=== PATIENT | male | born 1980 | race Caucasian/White ===

== ENCOUNTER 2016-05-18 17:49 | Emergency (ER) | payer MEDICARE, MEDICAID ==
[~2016-05-18] VITALS: Ht 190.5 cm; Wt 87.5 kg
[~2016-05-18 17:49] MED LIST: ACHD5005 PO; ALPR2TAB2; AMOX500C2 PO; ARPZ20T PO; CIPR500T78 PO; CYCL10TA9 PO; DICY10CA59 PO; HYDR1TAB PO; IBP200T PO; NAPR-243 PO; NITR-65 PO; OMEP20TA7 PO; ONDA4TAB8 PO; ONDA8TAB9 PO; PHEN100T26 PO; PHEN200T27 PO; PRX20T; TRAM50TA2 PO; TRAZ-28 PO
[2016-05-18] MEDS ORDERED: ASPIRIN 81 MG CHEW (CHILDREN'S ASA) PO ONE (18:15)
--- NOTE | 2016-05-18 18:15 | ED Chest Pain ---
General Chief Complaint: Chest Pain Stated Complaint: CP, SOA, COUGH Source: patient, EMS, RN notes reviewed Exam Limitations: no limitations History of Present Illness Time seen by provider: 18:10 Initial Comments As above. Off and on since last PM. Right sided. Worse c/ inspiration. Severity/Quality: moderate (5/10), sharp, stabbing Radiation: no radiation Activities at Onset: none Prior CP/Workup: no prior cardiac workup Modifying Factors: worse with breathing ASA po [facility] TECHNICAL ARCHITECT: Yes NTG SL [facility] TECHNICAL ARCHITECT: Yes Associated Symptoms: denies symptoms Allergies and Home Medications Allergies Coded Allergies: acetaminophen (Unverified Allergy, Unknown, 10/25/15) povidone-iodine (Unverified Allergy, Unknown, 10/25/15) propoxyphene (Unverified Allergy, Unknown, 10/25/15) soap (Unverified Allergy, Unknown, 10/25/15) Home Medications Aripiprazole 20 Mg Tablet 20 MG PO DAILY (Reported) Dicyclomine HCl 10 Mg Capsule #15 10 MG PO Q6H PRN PRN ABDOMINAL PAIN Prescribed by: GREGG COHEN on 10/25/15 2345 Omeprazole 20 Mg Tablet.dr 20 MG PO DAILY (Reported) Ondansetron 4 Mg Tab.rapdis #10 4 MG PO Q4H Prescribed by: GREGG COHEN on 10/25/15 2345 Trazodone HCl 50 Mg Tablet 50 MG PO PRN (Reported) Review of Systems Constitutional: see HPI Cardiovascular: See HPI Chest Pain (right side) All Other Systems Reviewed Negative Unless Noted: Yes (Negative excepted noted.) Past Dbqebup-Bqdjwh-Eqgmlw Hx Immunizations Up To Date Tetanus Booster (TDap): Less than 5yrs Date of Influenza Vaccine: Feb 15, 2013 Surgeries HX Surgeries: No Respiratory Hx Respiratory Disorders: No Cardiovascular Hx Cardiac Disorders: No Neurological Hx Neurological Disorders: No Genitourinary Hx Genitourinary Disorders: Yes Genitourinary Disorders: Kidney Stones Gastrointestinal Hx Gastrointestinal Disorders: Yes (LUQ ABDOMINAL PAIN ) Gastrointestinal Disorders: Gastroesophageal Reflux Musculoskeletal Hx Musculoskeletal Disorders: No Endocrine Hx Endocrine Disorders: No HEENT HX ENT Disorders: No Cancer Hx Cancer: No Psychosocial Hx Psychiatric Problems: Yes Behavioral Health Disorders: Sleep Difficulties, Schizophrenia Integumentary HX Skin/Integumentary Disorder: No Blood Transfusions Hx Blood Disorders: No Physical Exam Vital Signs Vital Sign - Last 12Hours 05/18/16 05/18/16 17:50 20:24 Temp 98.0 Pulse 85 Resp 18 B/P 137/84 Pulse Ox 99 O2 Delivery Room Air Capillary Refill : General Appearance: No Apparent Distress WD/WN HEENT: Other (oral pharynx on the dry side.) Respiratory: Lungs Clear No Respiratory Distress Cardiovascular: Regular Rate, Rhythm Gastrointestinal: Non Tender Rectal: Deferred Neurologic/Psychiatric: Alert Oriented x3 No Motor/Sensory Deficits Depressed Affect Skin: Warm/Dry Progress/Results/Core Measures Results/Orders Lab Results Laboratory Tests Test 05/18/16 18:00 05/18/16 19:10 Range/Units Alanine Aminotransferase (ALT/SGPT) 50 0-55 U/L Albumin 4.7 H 3.2-4.5 G/DL Alkaline Phosphatase 88 40-136 U/L Anion Gap 18 H 5-14 MMOL/L Aspartate Amino Transf (AST/SGOT) 55 H 5-34 U/L B-Type Natriuretic Peptide < 10.0 <100.0 PG/ML BUN/Creatinine Ratio 17 Basophils # (Auto) 0.1 0.0-0.1 10^3/uL Basophils (%) (Auto) 1 0-10 % Blood Urea Nitrogen 20 H 7-18 MG/DL Calcium Level 9.4 8.5-10.1 MG/DL Carbon Dioxide Level 18 L 21-32 MMOL/L Chloride Level 101 98-107 MMOL/L Creatinine 1.16 0.60-1.30 MG/DL D-Dimer 0.39 0.00-0.49 UG/ML Eosinophils # (Auto) 0.1 0.0-0.3 10^3/uL Eosinophils (%) (Auto) 1 0-10 % Estimat Glomerular Filtration Rate > 60 Glucose Level 103 70-105 MG/DL Hematocrit 39 L 40-54 % Hemoglobin 13.8 13.3-17.7 G/DL Lipase 31 8-78 U/L Lymphocytes # (Auto) 2.6 1.0-4.0 X 10^3 Lymphocytes (%) (Auto) 25 12-44 % Magnesium Level 2.1 1.8-2.4 MG/DL Mean Corpuscular Hemoglobin 32 25-34 PG Mean Corpuscular Hemoglobin Concent 35 32-36 G/DL Mean Corpuscular Volume 91 80-99 FL Mean Platelet Volume 9.5 7.4-10.4 FL Monocytes # (Auto) 0.8 0.0-1.0 X 10^3 Monocytes (%) (Auto) 8 0-12 % Neutrophils # (Auto) 6.8 1.8-7.8 X 10^3 Neutrophils (%) (Auto) 65 42-75 % Platelet Count 253 130-400 10^3/uL Potassium Level 3.3 L 3.6-5.0 MMOL/L Red Blood Count 4.33 L 4.35-5.85 10^6/uL Red Cell Distribution Width 12.8 10.0-14.5 % Serum Alcohol 14 H <10 MG/DL Sodium Level 137 135-145 MMOL/L Total Bilirubin 1.5 H 0.1-1.0 MG/DL Total Protein 7.5 6.4-8.2 G/DL Troponin I < 0.30 <0.30 NG/ML White Blood Count 10.3 4.3-11.0 10^3/uL Ur Tricyclic Antidepressants Screen NEGATIVE NEGATIVE Urine Amphetamines Screen NEGATIVE NEGATIVE Urine Barbiturates Screen NEGATIVE NEGATIVE Urine Benzodiazepines Screen NEGATIVE NEGATIVE Urine Cannabinoids Screen NEGATIVE NEGATIVE Urine Cocaine Screen NEGATIVE NEGATIVE Urine Methadone Screen NEGATIVE NEGATIVE Urine Methamphetamines Screen NEGATIVE NEGATIVE Urine Opiates Screen NEGATIVE NEGATIVE Urine Oxycodone Screen NEGATIVE NEGATIVE Urine Phencyclidine Screen NEGATIVE NEGATIVE Urine Propoxyphene Screen NEGATIVE NEGATIVE My Orders Orders-JEANNE JEAN BAPTISTE DO Saline Lock/Iv-Start (05/18/16 18:11) Ekg Tracing (05/18/16 18:11) BNP (05/18/16 18:11) Cbc With Automated Diff (05/18/16 18:11) Comprehensive Metabolic Panel (05/18/16 18:11) Fibrin Degradation Products (05/18/16 18:11) Drug Screen Stat (Urine) (05/18/16 18:11) Lipase (05/18/16 18:11) Magnesium (05/18/16 18:11) Troponin I (05/18/16 18:11) Aspirin Chewable Tablet (Baby Aspirin Ch (05/18/16 18:15) Alcohol (05/18/16 18:35) Saline Lock/Iv-Start (05/18/16 18:56) Ns Iv 1000 Ml (Sodium Chloride 0.9%) (05/18/16 18:56) Potassium Chloride Powder (Klor Con 20 M (05/18/16 19:00) Ketorolac Injection (Toradol Injection) (05/18/16 19:00) Potassium Chloride (Tablet) (K Dur Table (05/18/16 19:31) Potassium Chloride (Tablet) (K Dur Table (05/18/16 19:45) Ns Iv 1000 Ml (Sodium Chloride 0.9%) (05/18/16 19:29) Medications Given in ED Vital Signs/I&O Vital Sign - Last 12Hours 05/18/16 05/18/16 17:50 20:24 Temp 98.0 Pulse 85 80 Resp 18 18 B/P 137/84 Pulse Ox 99 O2 Delivery Room Air ECG Initial ECG Impression Date: May 18, 2016 Initial ECG Impression Time: 18:07 Initial ECG Rate: 98 Initial ECG Rhythm: Normal Sinus Initial ECG Intervals: QT Initial ECG Impression: Nonspecific Changes Initial ECG Comparisson: No Previous ECG Available Departure Impression Impression: Primary Impression: Non-cardiac chest pain Additional Impressions: Hypokalemia Dehydration Disposition: 01 HOME, SELF-CARE Condition: Improved Departure-Patient Inst. Decision time for Depature: 20:04 Referrals: SKINNY PEGUERO MD (PCP/Family) Primary Care Physician Patient Instructions: Chest Pain That Is Not Caused by the Heart (DC), Dehydration, Adult (DC) Add. Discharge Instructions: All discharge instructions reviewed with patient and/or family. Voiced understanding. NEED TO DRINK MORE WATER! JEANNE JEAN BAPTISTE DO May 18, 2016 18:15
[2016-05-18 18:20] LABS: BASOPHILS # (AUTO) 0.1 10^3/uL (0.0-0.1); BASOPHILS % (AUTO) 1 % (0-10); EOSINOPHILS # (AUTO) 0.1 10^3/uL (0.0-0.3); EOSINOPHILS % (AUTO) 1 % (0-10); LYMPHOCYTES # (AUTO) 2.6 X 10^3 (1.0-4.0); LYMPHOCYTES % (AUTO) 25 % (12-44); MEAN CORPUSCULAR HEMOGLOBIN 32 PG (25-34); MEAN CORPUSCULAR HGB CONC 35 G/DL (32-36); MEAN CORPUSCULAR VOLUME 91 FL (80-99); MEAN PLATELET VOLUME 9.5 FL (7.4-10.4); MONOCYTES # (AUTO) 0.8 X 10^3 (0.0-1.0); MONOCYTES % (AUTO) 8 % (0-12); NEUTROPHILS # (AUTO) 6.8 X 10^3 (1.8-7.8); NEUTROPHILS % (AUTO) 65 % (42-75); PLATELET COUNT 253 10^3/uL (130-400); RED BLOOD COUNT 4.33 10^6/uL (4.35-5.85); RED CELL DISTRIBUTION WIDTH 12.8 % (10.0-14.5); WHITE BLOOD COUNT 10.3 10^3/uL (4.3-11.0)
[2016-05-18 18:46] LABS: ALANINE AMINOTRANSFERASE 50 U/L (0-55); ALBUMIN 4.7 G/DL (3.2-4.5); ANION GAP 18 MMOL/L (5-14); ASPARTATE AMINO TRANSFERASE 55 U/L (5-34); BILIRUBIN,TOTAL 1.5 MG/DL (0.1-1.0); BLOOD UREA NITROGEN 20 MG/DL (7-18); BUN/CREATININE RATIO 17; CALCIUM 9.4 MG/DL (8.5-10.1); CARBON DIOXIDE 18 MMOL/L (21-32); CHLORIDE 101 MMOL/L (98-107); CREATININE SERUM 1.16 MG/DL (0.60-1.30); GFR ESTIMATED > 60; GLUCOSE 103 MG/DL (70-105); LIPASE 31 U/L (8-78); MAGNESIUM 2.1 MG/DL (1.8-2.4); POTASSIUM 3.3 MMOL/L (3.6-5.0); SODIUM 137 MMOL/L (135-145); TOTAL PROTEIN 7.5 G/DL (6.4-8.2)
[2016-05-18 18:49] LABS: TROPONIN I < 0.30 NG/ML (<0.30)
[2016-05-18] MEDS ORDERED: NS IV 1000 ML 1,000 ML IV ONE (18:56)
[2016-05-18] MEDS ORDERED: KCL 20 MEQ POWDER FOR ORAL SOLUTION PO ONE (19:00)
[2016-05-18] MEDS ORDERED: KETOROLAC 30 MG/ML VIAL IVP ONE (19:00)
[2016-05-18] MEDS ORDERED: NS IV 1000 ML 1,000 ML ONE (19:29)
[2016-05-18] MEDS ORDERED: KCL 20 MEQ TAB (K-DUR) PO ONE ×2 (19:31→19:45)
[2016-05-18 20:24] VITALS: BP 114/74
== END 2016-05-18 20:25 | disposition home or self-care (01) ==
LOC: EDUNIT# 17:49 → ER 17:50
DX: R07.89 Other chest pain (principal); E87.6 Hypokalemia; E86.0 Dehydration; Z79.899 Other long term (current) drug therapy
CPT/HCPCS: 36415; 80053; 80306; 80320; 83690; 83735; 83880; 84484; 85025; 85379; 93005; 96361; 96374

== ENCOUNTER 2017-07-28 17:27 | Emergency (ER) | payer MEDICARE, MEDICAID ==
[~2017-07-28] VITALS: Ht 188 cm; Wt 86.6 kg
--- OUTSIDE RECORDS SUMMARY | 2017-07-28 17:33 | XMS REPORT | Continuity of Care Document ---
Author Author [facility] Organization [facility] Address Unknown Phone Unavailable Allergies Active Description Code Type Severity Reaction Onset Reported/Identified Relationship to Patient Clinical Status Yes acetaminophen [id number] Drug Allergy Unknown N/A 10/25/2015 Yes povidone-iodine [id number] Drug Allergy Unknown N/A 10/25/2015 Yes propoxyphene [id number] Drug Allergy Unknown N/A 10/25/2015 Yes soap [id number] Drug Allergy Unknown N/A 10/25/2015 Medications There is no data. Problems Date Dx Coded Attending Type Code Diagnosis Diagnosed By 08/08/2010 Ot 525.9 DENTAL DISORDER NOS 10/19/2010 Ot 719.46 JOINT PAIN-L /LEG 10/19/2010 Ot 924.11 CONTUSION OF KNEE 10/19/2010 Ot E000.8 OTHER EXTERNAL CAUSE STATUS 10/19/2010 Ot E888.9 FALL NOS 04/12/2011 Ot 521.00 UNSPEC DENTAL CARIES 04/12/2011 Ot 525.9 DENTAL DISORDER NOS 10/12/2011 Ot 521.00 UNSPEC DENTAL CARIES 10/12/2011 Ot 525.9 DENTAL DISORDER NOS 12/31/2011 Ot 724.2 LUMBAGO 12/31/2011 Ot 846.0 SPRAIN LUMBOSACRAL 12/31/2011 Ot E000.8 OTHER EXTERNAL CAUSE STATUS 12/31/2011 Ot E849.0 ACCIDENT IN HOME 12/31/2011 Ot E881.0 FALL FROM LADDER 05/29/2013 CHRISTOPHER CRUMP Ot 592.0 CALCULUS OF KIDNEY 05/29/2013 CHRISTOPHER CRUMP Ot 787.01 NAUSEA WITH VOMITING 05/29/2013 CHRISTOPHER CRUMP Ot 789.09 ABDOMINAL PAIN, OTHER SPECIFIED SITE 07/05/2013 GREGG COHEN DO Ot 599.72 MICROSCOPIC HEMATURIA 07/05/2013 GREGG COHEN DO Ot 788.1 DYSURIA 07/05/2013 NOEL DO, GREGG K Ot 789.09 ABDOMINAL PAIN, OTHER SPECIFIED SITE 10/26/2015 NOEL DO, GREGG K Ot F17.210 NICOTINE DEPENDENCE, CIGARETTES, UNCOMPL 10/26/2015 NOEL DO, GREGG K Ot K40.90 UNIL INGUINAL HERNIA, W/O OBST OR GANGR, 10/26/2015 NOEL DO, GREGG K Ot R10.12 LEFT UPPER QUADRANT PAIN 10/29/2015 NOEL DO, GREGG K Ot F17.210 NICOTINE DEPENDENCE, CIGARETTES, UNCOMPL 10/29/2015 NOEL DO, GREGG K Ot K40.90 UNIL INGUINAL HERNIA, W/O OBST OR GANGR, 10/29/2015 NOEL DO, GREGG K Ot R10.12 LEFT UPPER QUADRANT PAIN 10/29/2015 NOEL DO, GREGG K Ot F17.210 NICOTINE DEPENDENCE, CIGARETTES, UNCOMPL 10/29/2015 NOEL DO, GREGG K Ot K40.90 UNIL INGUINAL HERNIA, W/O OBST OR GANGR, 10/29/2015 NOEL DO, GREGG K Ot R10.12 LEFT UPPER QUADRANT PAIN 05/18/2016 JEANNE JEAN BAPTISTE DO Ot E86.0 DEHYDRATION 05/18/2016 JEANNE JEAN BAPTISTE DO Ot E87.6 HYPOKALEMIA 05/18/2016 JEANNE JEAN BAPTISTE DO Ot R07.89 OTHER CHEST PAIN 05/18/2016 JEANNE JEAN BAPTISTE DO Ot R07.9 CHEST PAIN, UNSPECIFIED 05/18/2016 JEANNE JEAN BAPTISTE DO Ot 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 05/20/2016 JEANNE JEAN BAPTISTE DO Ot E86.0 DEHYDRATION 05/20/2016 JEANNE JEAN BAPTISTE DO Ot E87.6 HYPOKALEMIA 05/20/2016 JEANNE JEAN BAPTISTE DO Ot R07.89 OTHER CHEST PAIN 05/20/2016 JEANNE JEAN BAPTISTE DO Ot R07.9 CHEST PAIN, UNSPECIFIED 05/20/2016 JEANNE JEAN BAPTISTE DO Ot Z79.899 OTHER SNF (CURRENT) DRUG THERAPY 05/20/2016 JEANNE JEAN BAPTISTE DO Ot E86.0 DEHYDRATION 05/20/2016 JEANNE JEAN BAPTISTE DO Ot E87.6 HYPOKALEMIA 05/20/2016 JEANNE JEAN BAPTISTE DO Ot R07.89 OTHER CHEST PAIN 05/20/2016 JEANNE JEAN BAPTISTE DO Ot R07.9 CHEST PAIN, UNSPECIFIED 05/20/2016 JEANNE JEAN BAPTISTE DO, Ot 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 Results Test Result Range Complete blood count (CBC) with automated white blood cell (WBC) differential - 05/18/16 18:00 Blood leukocytes automated count (number/volume) 10.3 10*3/uL 4.3-11.0 Blood erythrocytes automated count (number/volume) 4.33 10*6/uL 4.35-5.85 Venous blood hemoglobin measurement (mass/volume) 13.8 g/dL 13.3-17.7 Blood hematocrit (volume fraction) 39 % 40-54 Automated erythrocyte mean corpuscular volume 91 [foz_us] 80-99 Automated erythrocyte mean corpuscular hemoglobin (mass per erythrocyte) 32 pg 25-34 Automated erythrocyte mean corpuscular hemoglobin concentration measurement ( mass/volume) 35 g/dL 32-36 Automated erythrocyte distribution width ratio 12.8 % 10.0-14.5 Automated blood platelet count (count/volume) 253 10*3/uL 130-400 Automated blood platelet mean volume measurement 9.5 [foz_us] 7.4-10.4 Automated blood neutrophils/100 leukocytes 65 % 42-75 Automated blood lymphocytes/100 leukocytes 25 % 12-44 Blood monocytes/100 leukocytes 8 % 0-12 Automated blood eosinophils/100 leukocytes 1 % 0-10 Automated blood basophils/100 leukocytes 1 % 0-10 Blood neutrophils automated count (number/volume) 6.8 10*3 1.8-7.8 Blood lymphocytes automated count (number/volume) 2.6 10*3 1.0-4.0 Blood monocytes automated count (number/volume) 0.8 10*3 0.0-1.0 Automated eosinophil count 0.1 10*3/uL 0.0-0.3 Automated blood basophil count (count/volume) 0.1 10*3/uL 0.0-0.1 Fibrin D-dimer FEU measurement in platelet poor plasma (mass/volume) - 18:00 Fibrin D-dimer FEU measurement in platelet poor plasma (mass/volume) 0.39 ug/mL 0.00-0.49 Comprehensive metabolic panel - 05/18/16 18:00 Serum or plasma sodium measurement (moles/volume) 137 mmol/L 135-145 Serum or plasma potassium measurement (moles/volume) 3.3 mmol/L 3.6-5.0 Serum or plasma chloride measurement (moles/volume) 101 mmol/L 98-107 Carbon dioxide 18 mmol/L 21-32 Serum or plasma anion gap determination (moles/volume) 18 mmol/L 5-14 Serum or plasma urea nitrogen measurement (mass/volume) 20 mg/dL 7-18 Serum or plasma creatinine measurement (mass/volume) 1.16 mg/dL 0.60-1.30 Serum or plasma urea nitrogen/creatinine mass ratio 17 NRG Serum or plasma creatinine measurement with calculation of estimated glomerular filtration rate > NRG Serum or plasma glucose measurement (mass/volume) 103 mg/dL 70-105 Serum or plasma calcium measurement (mass/volume) 9.4 mg/dL 8.5-10.1 Serum or plasma total bilirubin measurement (mass/volume) 1.5 mg/dL 0.1-1.0 Serum or plasma alkaline phosphatase measurement (enzymatic activity/volume) 88 U/L 40-136 Serum or plasma aspartate aminotransferase measurement (enzymatic activity/ volume) 55 U/L 5-34 Serum or plasma alanine aminotransferase measurement (enzymatic activity/volume ) 50 U/L 0-55 Serum or plasma protein measurement (mass/volume) 7.5 g/dL 6.4-8.2 Serum or plasma albumin measurement (mass/volume) 4.7 g/dL 3.2-4.5 Magnesium - 05/18/16 18:00 Magnesium 2.1 mg/dL 1.8-2.4 Serum or plasma troponin i.cardiac measurement (mass/volume) - 05/18/16 18:00 Serum or plasma troponin i.cardiac measurement (mass/volume) < ng/ mL <0.30 Lipase - 05/18/16 18:00 Lipase 31 U/L 8-78 Serum or plasma lithium measurement (moles/volume) - 05/18/16 18:00 BNP level < pg/mL <100.0 Serum or plasma ethanol measurement (mass/volume) - 05/18/16 18:00 Serum or plasma ethanol measurement (mass/volume) 14 mg/dL <10 Urine drug screening test - 05/18/16 19:10 Urine phencyclidine detection by screening method NEGATIVE NEGATIVE Urine benzodiazepines detection by screening method NEGATIVE NEGATIVE Urine cocaine detection NEGATIVE NEGATIVE Urine amphetamines detection by screening method NEGATIVE NEGATIVE Urine methamphetamine detection by screening method NEGATIVE NEGATIVE Urine cannabinoids detection by screening method NEGATIVE NEGATIVE Urine opiates detection by screening method NEGATIVE NEGATIVE Urine barbiturates detection NEGATIVE NEGATIVE Screening urine tricyclic antidepressants detection NEGATIVE NEGATIVE Urine methadone detection by screening method NEGATIVE NEGATIVE Urine oxycodone detection NEGATIVE NEGATIVE Urine propoxyphene detection NEGATIVE NEGATIVE Encounters ACCT No. Visit Date/Time Discharge Status Pt. Type Provider Facility Loc./Unit Complaint [id number] 05/18/2016 17:50:00 05/18/2016 20:25:00 DIS Emergency JEANNE JEAN BAPTISTE DO [facility] ER CP, SOA, COUGH [id number] 10/25/2015 22:09:00 10/26/2015 00:04:00 DIS Emergency GREGG COHEN DO [facility] ER LUQ PAIN [id number] 07/05/2013 15:02:00 07/05/2013 17:42:00 DIS Emergency GREGG COHEN DO [facility] ER KIDNEY STONES [id number] 05/29/2013 16:42:00 05/29/2013 20:43:00 DIS Emergency CHRISTOPHER CRUMP [facility] ER KIDNEY STONES [id number] 12/31/2011 19:02:00 Document Registration [id number] 10/12/2011 10:55:00 Document Registration [id number] 04/12/2011 12:52:00 Document Registration [id number] 10/19/2010 09:51:00 Document Registration [id number] 08/08/2010 12:33:00 Document Registration
--- NOTE | 2017-07-28 17:39 | ED Upper Extremity ---
General Stated Complaint: RIGHT SHOULDER PAIN Source: patient Exam Limitations: no limitations History of Present Illness Date Seen by Provider: Jul 28, 2017 Time Seen by Provider: 17:35 Initial Comments To ER with right shoulder pain that began one week ago without known cause. Pain is worsened by shoulder abduction. Onset: last week Severity: moderate Pain/Injury Location: right shoulder Method of Injury: unknown Modifying Factors: Worse With Movement Allergies and Home Medications Allergies Coded Allergies: acetaminophen (Unverified Allergy, Unknown, 10/25/15) povidone-iodine (Unverified Allergy, Unknown, 10/25/15) propoxyphene (Unverified Allergy, Unknown, 10/25/15) soap (Unverified Allergy, Unknown, 10/25/15) Home Medications Cyclobenzaprine HCl 5 Mg Tablet, 5 MG PO TID PRN for PAIN-MODERATE Prescribed by: WENDY DOMINGUEZ on 07/28/17 1800 Methylprednisolone 4 Mg Tab.ds.pk, 4 MG PO UD Prescribed by: WENDY DOMINGUEZ on 07/28/17 1800 Omeprazole 20 Mg Tablet.dr, 20 MG PO DAILY, (Reported) Patient Home Medication List Home Medication List Reviewed: Yes Constitutional: see HPI EENTM: see HPI Respiratory: no symptoms reported Cardiovascular: no symptoms reported Genitourinary: no symptoms reported Musculoskeletal: see HPI Skin: no symptoms reported Psychiatric/Neurological: No Symptoms Reported Past Ttsqqbn-Ctdyie-Kwbzxb Hx Patient Social History Recent Foreign Travel: No Contact w/Someone Who Travel: No Recent Hopitalizations: No Immunizations Up To Date Tetanus Booster (TDap): Less than 5yrs Date of Influenza Vaccine: Feb 15, 2013 Genitourinary Genitourinary Disorders: Kidney Stones Gastrointestinal Gastrointestinal Disorders: Gastroesophageal Reflux Psychosocial Behavioral Health Disorders: Sleep Difficulties, Schizophrenia Physical Exam Vital Signs Vital Signs - First Documented 07/28/17 17:32 Temp 94.1 Pulse 70 Resp 18 B/P (MAP) 146/92 (110) Pulse Ox 98 O2 Delivery Room Air Capillary Refill : General Appearance: WD/WN, no apparent distress HEENT: PERRL/EOMI, normal ENT inspection Neck: non-tender, full range of motion Respiratory: no respiratory distress, no accessory muscle use Gastrointestinal: normal bowel sounds, non tender Shoulder: normal inspection, limited ROM (tenderness to palpation over the proximal deltoid), soft tissue tenderness Elbow/Forearm: normal inspection, non-tender Wrist: Yes normal inspection, Yes non-tender Hand: normal inspection, non-tender Neurologic/Psychiatric: alert, normal mood/affect, oriented x 3 Skin: normal color, warm/dry Progress/Results/Core Measures Results/Orders My Orders Orders - WENDY DOMINGUEZ APRN Shoulder, Right, 3 Views (07/28/17 17:40) Vital Signs/I&O Vital Sign - Last 12Hours 07/28/17 17:32 Temp 94.1 Pulse 70 Resp 18 B/P (MAP) 146/92 (110) Pulse Ox 98 O2 Delivery Room Air Departure Impression Impression: Primary Impression: Tendonitis of shoulder, right Disposition: 01 HOME, SELF-CARE Condition: Stable Departure-Patient Inst. Decision time for Depature: 17:56 Referrals: NO,LOCAL PHYSICIAN (PCP) Primary Care Physician Patient Instructions: Tendonitis (DC) Add. Discharge Instructions: 1. Medications as directed 2. Follow up with your doctor next week Scripts Cyclobenzaprine HCl (Cyclobenzaprine HCl) 5 Mg Tablet 5 MG PO TID Y for PAIN-MODERATE, #21 TAB Prov: WENDY DOMINGUEZ APRN 07/28/17 Methylprednisolone (Medrol) 4 Mg Tab.ds.pk 4 MG PO UD, #1 PKG Prov: WENDY DOMINGUEZ APRN 07/28/17 EWNDY DOMINGUEZ APRN Jul 28, 2017 17:39
[2017-07-28] MEDS ORDERED: TIZA4TAB3 (17:43)
[2017-07-28] MEDS ORDERED: METH4TAB PO (18:00)
[2017-07-28] MEDS ORDERED: CYCL5TAB PO (18:00)
--- NOTE | 2017-07-28 18:02 | Diagnostic Imaging Report ---
INDICATION: Right shoulder pain FINDINGS: Three views of the right shoulder demonstrate normal ossification. No fracture or dislocation is present. A spinal cord stimulator is in place. IMPRESSION: Negative right shoulder. Dictated by: Dictated on workstation # [id number]
[2017-07-28 18:05] VITALS: BP 146/92
== END 2017-07-28 18:05 | disposition home or self-care (01) ==
LOC: EDUNIT# 17:27 → ER 17:28
DX: M75.91 Shoulder lesion, unspecified, right shoulder (principal); K21.9 Gastro-esophageal reflux disease without esophagitis; F20.9 Schizophrenia, unspecified; G47.9 Sleep disorder, unspecified; Z88.6 Allergy status to analgesic agent; Z91.041 Radiographic dye allergy status; Z87.442 Personal history of urinary calculi
CPT/HCPCS: 73030

== ENCOUNTER 2017-08-21 16:59 | Emergency (ER) | payer MEDICARE, MEDICAID ==
[~2017-08-21] VITALS: Ht 188 cm; Wt 86.2 kg
[~2017-08-21 16:59] MED LIST changes: +CYCL5TAB PO; +METH4TAB PO; +TIZA4TAB3
--- OUTSIDE RECORDS SUMMARY | 2017-08-21 17:06 | XMS REPORT | Continuity of Care Document ---
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 05/20/2016 JEANNE JEAN BAPTISTE DO Ot E86.0 DEHYDRATION 05/20/2016 JEANNE JEAN BAPTISTE DO Ot E87.6 HYPOKALEMIA 05/20/2016 JEANNE JEAN BAPTISTE DO Ot R07.89 OTHER CHEST PAIN 05/20/2016 JEANNE JEAN BAPTISTE DO Ot R07.9 CHEST PAIN, UNSPECIFIED 05/20/2016 JEANNE JEAN BAPTISTE DO Ot Z79.899 OTHER RESIDENTIAL (CURRENT) DRUG THERAPY 05/20/2016 JEANNE JEAN BAPTISTE DO Ot E86.0 DEHYDRATION 05/20/2016 JEANNE JEAN BAPTISTE DO Ot E87.6 HYPOKALEMIA 05/20/2016 JEANNE JEAN BAPTISTE DO Ot R07.89 OTHER CHEST PAIN 05/20/2016 JEANNE JEAN BAPTISTE DO Ot R07.9 CHEST PAIN, UNSPECIFIED 05/20/2016 JEANNE JEAN BAPTISTE DO Ot 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 05/22/2016 JEANNE JEAN BAPTISTE DO Ot E86.0 DEHYDRATION 05/22/2016 JEANNE JEAN BAPTISTE DO Ot E87.6 HYPOKALEMIA 05/22/2016 JEANNE JEAN BAPTISTE DO Ot R07.89 OTHER CHEST PAIN 05/22/2016 ITA KRUGER, JEANNE Ryder Ot R07.9 CHEST PAIN, UNSPECIFIED 05/22/2016 JEANNE JEAN BAPTISTE DO Ot Z79.899 OTHER RESIDENTIAL (CURRENT) DRUG THERAPY 07/28/2017 WENDY DOMINGUEZ APRN Ot F20.9 SCHIZOPHRENIA, UNSPECIFIED 07/28/2017 WENDY DOMINGUEZ APRN Ot G47.9 SLEEP DISORDER, UNSPECIFIED 07/28/2017 WENDY DOMINGUEZ APRN Ot K21.9 GASTRO-ESOPHAGEAL REFLUX DISEASE WITHOUT 07/28/2017 WENDY DOMINGUEZ APRN Ot M25.511 PAIN IN RIGHT SHOULDER 07/28/2017 WENDY DOMINGUEZ APRN Ot M75.91 SHOULDER LESION, UNSPECIFIED, RIGHT SHOU 07/28/2017 WENDY DOMINGUEZ APRN Ot Z87.442 PERSONAL HISTORY OF URINARY CALCULI 07/28/2017 WENDY DOMINGUEZ APRN Ot Z88.6 ALLERGY STATUS TO ANALGESIC AGENT STATUS 07/28/2017 WENDY DOMINGUEZ APRN Ot Z91.041 RADIOGRAPHIC DYE ALLERGY STATUS 07/30/2017 WENDY DOMINGUEZ APRN Ot F20.9 SCHIZOPHRENIA, UNSPECIFIED 07/30/2017 WENDY DOMINGUEZ APRN Ot G47.9 SLEEP DISORDER, UNSPECIFIED 07/30/2017 WENDY DOMINGUEZ APRN Ot K21.9 GASTRO-ESOPHAGEAL REFLUX DISEASE WITHOUT 07/30/2017 WENDY DOMINGUEZ APRN Ot M25.511 PAIN IN RIGHT SHOULDER 07/30/2017 WENDY DOMINGUEZ APRN Ot M75.91 SHOULDER LESION, UNSPECIFIED, RIGHT SHOU 07/30/2017 WENDY DOMINGUEZ APRN Ot Z87.442 PERSONAL HISTORY OF URINARY CALCULI 07/30/2017 WENDY DOMINGUEZ APRN Ot Z88.6 ALLERGY STATUS TO ANALGESIC AGENT STATUS 07/30/2017 WENDY DOMINGUEZ APRN Ot Z91.041 RADIOGRAPHIC DYE ALLERGY STATUS Procedures There is no data. Results Test [...] Status Pt. Type Provider Facility Loc./Unit Complaint [id number] 07/28/2017 17:28:00 07/28/2017 18:05:00 DIS Emergency WENDY DOMINGUEZ APRN [facility] ER RIGHT SHOULDER PAIN [id number] 05/18/2016 17:50:00 05/18/2016 20:25:00 DIS Emergency JEANNE JEAN BAPTISTE DO [facility] ER CP, SOA, COUGH [id number] 10/25/2015 22:09:00 10/26/2015 00:04:00 DIS Emergency NOEL DOGREGG [facility] ER LUQ PAIN [id number] 07/05/2013 15:02:00 07/05/2013 17:42:00 DIS Emergency NOEL DOGREGG K [facility] ER KIDNEY STONES [id number] 05/29/2013 16:42:00 05/29/2013 20:43:00 DIS Emergency CHRISTOPHER CRUMP [facility] ER KIDNEY STONES [id number] 12/31/2011 19:02:00 Document Registration [id number] 10/12/2011 10:55:00 Document Registration [id number] 04/12/2011 12:52:00 Document Registration [id number] 10/19/2010 09:51:00 Document Registration [id number] 08/08/2010 12:33:00 Document Registration
[2017-08-21] MEDS ORDERED: KETOROLAC 30 MG/ML VIAL IVP STA (19:02)
--- NOTE | 2017-08-21 19:09 | ED EENT ---
History of Present Illness General Chief Complaint: Dental Problems/Pain Stated Complaint: DENTAL PAIN Nursing Triage Note: Pt c/o R lower dental pain Source: patient Exam Limitations: no limitations History of Present Illness Date Seen by Provider: Aug 21, 2017 Time Seen by Provider: 18:55 Initial Comments C/O PAIN TO RIGHT LOWER MOLAR FOR A COUPLE OF DAYS BEGAN RUNNING FEVER LAST PM--WAS > 101 THIS MORNING RIGHT SIDE OF FACE BEGAN SWELLING DOES NOT HAVE A DENTIST PCP: TAHIR ROSS Allergies and Home Medications Allergies Coded Allergies: acetaminophen (Unverified Allergy, Unknown, 10/25/15) povidone-iodine (Unverified Allergy, Unknown, 10/25/15) propoxyphene (Unverified Allergy, Unknown, 10/25/15) soap (Unverified Allergy, Unknown, 10/25/15) Home Medications Cyclobenzaprine HCl 5 Mg Tablet, 5 MG PO TID PRN for PAIN-MODERATE Prescribed by: WENDY DOMINGUEZ on 07/28/17 1800 Methylprednisolone 4 Mg Tab.ds.pk, 4 MG PO UD Prescribed by: WENDY DOMINGUEZ on 07/28/17 1800 Omeprazole 20 Mg Tablet.dr, 20 MG PO DAILY, (Reported) Patient Home Medication List Home Medication List Reviewed: Yes Review of Systems Constitutional: see HPI, fever Eyes: No Symptoms Reported Ears: No Symptoms Reported Nose: no symptoms reported Mouth: see HPI Throat: no symptoms reported Respiratory: no symptoms reported Cardiovascular: no symptoms reported Gastrointestinal: no symptoms reported Musculoskeletal: no symptoms reported Skin: no symptoms reported Neurological: No Symptoms Reported Hematologic/Lymphatic: No Symptoms Reported Immunological/Allergic: no symptoms reported Past Djfjadw-Izrzaj-Nnnlix Hx Patient Social History Alcohol Use: Denies Use Recreational Drug Use: No Smoking Status: Current Everyday Smoker (1 PPD) Type Used: Cigarettes (1 PPD) Recent Foreign Travel: No Contact w/Someone Who Travel: No Recent Infectious Disease Expo: No Recent Hopitalizations: No Immunizations Up To Date Tetanus Booster (TDap): Less than 5yrs Date of Influenza Vaccine: Feb 15, 2013 Past Medical History Surgeries: Yes (NEUROSTIMULATOR PLACED FOR CHRONIC BACK PAIN ) Respiratory: No Cardiac: No Neurological: No Genitourinary: Yes Kidney Stones Gastrointestinal: Yes (GERD--CLINICAL DX--NO TESTS DONE) Gastroesophageal Reflux Musculoskeletal: Yes (NEUROSTIMULATOR IN PLACE) Chronic Back Pain Endocrine: No HEENT: No Cancer: No Psychosocial: Yes Sleep Difficulties, Schizophrenia Integumentary: No Blood Disorders: No Physical Exam Vital Signs Vital Signs - First Documented 08/21/17 17:50 Temp 97.0 Pulse 64 Resp 16 B/P (MAP) 142/77 (98) Pulse Ox 98 O2 Delivery Room Air General Appearance: WD/WN, no apparent distress Eyes: bilateral eye normal inspection, bilateral eye PERRL, bilateral eye EOMI Ears: bilateral ear auricle normal, bilateral ear canal normal, bilateral ear TM normal Nose: normal inspection Mouth/Throat: dental tenderness (RIGHT LOWER SECOND MOLAR WITH MILD SURROUNDING GUM INFLAMMATION/SWELLING), mandibular swelling (ON RIGHT), other ( EXTENSIVE DENTAL DECAY.) Neck: non-tender, full range of motion, supple, normal inspection Cardiovascular: normal peripheral pulses, regular rate, rhythm, no murmur Respiratory: normal breath sounds, no respiratory distress, no accessory muscle use Gastrointestinal: soft 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, no motor/sensory deficits, alert, normal mood/affect, oriented x 3 Skin: normal color, warm/dry Progress/Results/Core Measures Lab Results Laboratory Tests Test 08/21/17 19:15 Range/Units White Blood Count 8.1 4.3-11.0 10^3/uL Red Blood Count 4.29 L 4.35-5.85 10^6/uL Hemoglobin 14.1 13.3-17.7 G/DL Hematocrit 39 L 40-54 % Mean Corpuscular Volume 92 80-99 FL Mean Corpuscular Hemoglobin 33 25-34 PG Mean Corpuscular Hemoglobin Concent 36 32-36 G/DL Red Cell Distribution Width 12.8 10.0-14.5 % Platelet Count 190 130-400 10^3/uL Mean Platelet Volume 9.7 7.4-10.4 FL Neutrophils (%) (Auto) 56 42-75 % Lymphocytes (%) (Auto) 33 12-44 % Monocytes (%) (Auto) 6 0-12 % Eosinophils (%) (Auto) 4 0-10 % Basophils (%) (Auto) 1 0-10 % Neutrophils # (Auto) 4.5 1.8-7.8 X 10^3 Lymphocytes # (Auto) 2.7 1.0-4.0 X 10^3 Monocytes # (Auto) 0.5 0.0-1.0 X 10^3 Eosinophils # (Auto) 0.3 0.0-0.3 10^3/uL Basophils # (Auto) 0.1 0.0-0.1 10^3/uL Sodium Level 141 135-145 MMOL/L Potassium Level 3.7 3.6-5.0 MMOL/L Chloride Level 106 98-107 MMOL/L Carbon Dioxide Level 29 21-32 MMOL/L Anion Gap 6 5-14 MMOL/L Blood Urea Nitrogen 10 7-18 MG/DL Creatinine 0.82 0.60-1.30 MG/DL Estimat Glomerular Filtration Rate > 60 BUN/Creatinine Ratio 12 Glucose Level 87 70-105 MG/DL Lactic Acid Level 1.24 0.50-2.00 MMOL/L Calcium Level 9.4 8.5-10.1 MG/DL Total Bilirubin 0.7 0.1-1.0 MG/DL Aspartate Amino Transf (AST/SGOT) 18 5-34 U/L Alanine Aminotransferase (ALT/SGPT) 24 0-55 U/L Alkaline Phosphatase 81 40-136 U/L Total Protein 6.9 6.4-8.2 GM/DL Albumin 4.1 3.2-4.5 GM/DL Amylase Level 47 25-125 U/L Lipase 27 8-78 U/L My Orders Orders - GREGG COHEN DO Saline Lock/Iv-Start (08/21/17 19:02) Amylase (08/21/17 19:02) Cbc With Automated Diff (08/21/17 19:02) Comprehensive Metabolic Panel (08/21/17 19:02) Lactic Acid Analyzer (08/21/17 19:02) Lipase (08/21/17 19:02) Blood Culture (08/21/17 19:02) Ketorolac Injection (Toradol Injection) (08/21/17 19:02) Clindamycin 900 Mg/50 Ml Ivpb (Cleocin P (08/21/17 19:15) Ct Maxillofacial W (08/21/17 19:02) Iohexol Injection (Omnipaque 350 Mg/Ml 1 (08/21/17 19:30) Ns (Ivpb) (Sodium Chloride 0.9%) (08/21/17 19:30) Medications Given in ED Current Medications Medications Dose Ordered Sig/Sean Route Start Time Stop Time Status Last Admin Dose Admin Clindamycin Phosphate/Dextrose 50 ml @ 100 mls/hr ONCE ONCE IV 08/21/17 19:15 08/21/17 19:44 DC 08/21/17 19:40 100 MLS/HR Iohexol 100 ml ONCE ONCE IV 08/21/17 19:30 08/21/17 19:31 DC 08/21/17 19:22 100 ML Sodium Chloride 250 ml ONCE ONCE IV 08/21/17 19:30 08/21/17 19:31 DC 08/21/17 19:22 80 ML Vital Signs/I&O 08/21/17 17:50 Temp 97.0 Pulse 64 Resp 16 B/P (MAP) 142/77 (98) Pulse Ox 98 O2 Delivery Room Air Blood Pressure Mean: [address] MAXILLOFACIALS--DENTAL CARIES, WITHOUT ABSCESS, + MAXILLARY SINUS DISEASE-- PER RADIOLOGIST REPORT @ 2021 Reviewed: Reviewed by Me Departure Impression Primary Impression: Dental caries Additional Impressions: DENTAL CARIES WITH LOCAL CELLULITIS Sinus disease Disposition: HOME, SELF-CARE Condition: Stable Departure-Patient Inst. Referrals: ALICIA VILLEGAS MD (PCP/Family) Primary Care Physician Patient Instructions: Sinusitis, Adult (DC), Tooth Abscess (DC), Tooth Decay, Adult (DC) Add. Discharge Instructions: FREQUENT SALT WATER SWISHES FOLLOW UP WITH DENTIST NEXT WEEK FOR FURTHER CARE All discharge instructions reviewed with patient and/or family. Voiced understanding. Scripts Naproxen (Naproxen) 500 Mg Tablet 500 MG PO BID, #20 TAB Prov: GREGG COHEN DO 08/21/17 Lidocaine HCl (Lidocaine HCl Viscous) 15 Ml Solution 1-2 ML MM Q 1-2 HOURS for Pain, #100 ML Prov: GREGG COHEN DO 08/21/17 Fluticasone Propionate (Flonase Allergy Relief) 9.9 Ml [place].susp 2 SPRAYS NS BID, #1 SPRAY Prov: GREGG COHEN DO 08/21/17 Amoxicillin/Potassium Clav (Augmentin 875-125 Tablet) 1 Each Tablet 1 EACH PO BID for INFECTION, #20 TAB Prov: GREGG COHEN DO 08/21/17 GREGG COHEN DO Aug 21, 2017 19:09
[2017-08-21] MEDS ORDERED: CLINDAMYCIN 900 MG/50 ML IVPB 50 ML IV ONE (19:15)
[2017-08-21 19:29] LABS: BASOPHILS # (AUTO) 0.1 10^3/uL (0.0-0.1); BASOPHILS % (AUTO) 1 % (0-10); EOSINOPHILS # (AUTO) 0.3 10^3/uL (0.0-0.3); EOSINOPHILS % (AUTO) 4 % (0-10); HEMATOCRIT 39 % (40-54); HEMOGLOBIN 14.1 G/DL (13.3-17.7); LYMPHOCYTES # (AUTO) 2.7 X 10^3 (1.0-4.0); LYMPHOCYTES % (AUTO) 33 % (12-44); MEAN CORPUSCULAR HEMOGLOBIN 33 PG (25-34); MEAN CORPUSCULAR HGB CONC 36 G/DL (32-36); MEAN CORPUSCULAR VOLUME 92 FL (80-99); MEAN PLATELET VOLUME 9.7 FL (7.4-10.4); MONOCYTES # (AUTO) 0.5 X 10^3 (0.0-1.0); MONOCYTES % (AUTO) 6 % (0-12); NEUTROPHILS # (AUTO) 4.5 X 10^3 (1.8-7.8); NEUTROPHILS % (AUTO) 56 % (42-75); PLATELET COUNT 190 10^3/uL (130-400); RED BLOOD COUNT 4.29 10^6/uL (4.35-5.85); RED CELL DISTRIBUTION WIDTH 12.8 % (10.0-14.5); WHITE BLOOD COUNT 8.1 10^3/uL (4.3-11.0)
[2017-08-21] MEDS ORDERED: NS 250 ML (IVPB) BAG IV ONE (19:30)
[2017-08-21] MEDS ORDERED: IOHEXOL 350 MG/ML 100 ML (OMNIPAQUE 350) VIAL IV ONE (19:30)
[2017-08-21 19:48] LABS: ALANINE AMINOTRANSFERASE 24 U/L (0-55); ALBUMIN 4.1 GM/DL (3.2-4.5); ALKALINE PHOSPHATASE 81 U/L (40-136); AMYLASE 47 U/L (25-125); BILIRUBIN,TOTAL 0.7 MG/DL (0.1-1.0); BUN/CREATININE RATIO 12; CALCIUM 9.4 MG/DL (8.5-10.1); CARBON DIOXIDE 29 MMOL/L (21-32); CHLORIDE 106 MMOL/L (98-107); CREATININE SERUM 0.82 MG/DL (0.60-1.30); GFR ESTIMATED > 60; GLUCOSE 87 MG/DL (70-105); LIPASE 27 U/L (8-78); POTASSIUM 3.7 MMOL/L (3.6-5.0); SODIUM 141 MMOL/L (135-145); TOTAL PROTEIN 6.9 GM/DL (6.4-8.2)
--- NOTE | 2017-08-21 20:18 | Diagnostic Imaging Report ---
PROCEDURE: CT maxillofacial with contrast. TECHNIQUE: After intravenous administration of contrast, axial images were obtained through the face and reformatted into coronal and sagittal planes. INDICATION: Right-sided dental pain. COMPARISON: None available. FINDINGS: There are no periapical lucencies to indicate periapical abscesses in the mandibular or maxillary teeth. There are multifocal enamel erosions indicative of dental caries involving the maxillary and mandibular teeth. The right third mandibular molar is near completely eroded. No asymmetric soft tissue swelling or reticulations in the buccal surface fat of the mandible. Base of the tongue and floor of the mouth are grossly normal. Airway remains widely patent. There is no acute fracture in the mid face or mandible. The lateral sublation of the left nasomaxillary suture may be due to old trauma. Orbits are symmetric. Patchy opacification of the ethmoid air cells and frontal sinuses. Polypoidal mucosal thickening in the maxillary sinuses. Air-fluid level in the sphenoid sinus is noted. Visualized aspects of the brain are grossly normal. IMPRESSION: 1. Multifocal dental caries, for which oral examination will better assess. No periapical lucencies to indicate periodontal disease/abscess. 2. Multifocal paranasal sinus disease with air-fluid level in the sphenoid sinus, which can be seen with acute sinusitis. Dictated by: Dictated on workstation # [id number]
[2017-08-21] MEDS ORDERED: AMOX-358 PO (20:27)
[2017-08-21] MEDS ORDERED: FLUT9.9S NS (20:27)
[2017-08-21] MEDS ORDERED: LIDO15SO2 MM (20:27)
[2017-08-21] MEDS ORDERED: NAPR-915 PO (20:27)
[2017-08-21 20:45] VITALS: BP 142/77
== END 2017-08-21 20:45 | disposition home or self-care (01) ==
LOC: EDUNIT# 16:59 → ER 17:00
DX: K02.9 Dental caries, unspecified (principal); K12.2 Cellulitis and abscess of mouth; J32.9 Chronic sinusitis, unspecified; K21.9 Gastro-esophageal reflux disease without esophagitis; F20.9 Schizophrenia, unspecified; F17.210 Nicotine dependence, cigarettes, uncomplicated; Z88.6 Allergy status to analgesic agent; Z96.9 Presence of functional implant, unspecified; Z87.442 Personal history of urinary calculi; Z88.8 Allergy status to other drugs, medicaments and biological substances; Z79.52 Long term (current) use of systemic steroids
CPT/HCPCS: 36415; 70487; 80053; 82150; 83605; 83690; 85025; 87040; 96365; 96375

== ENCOUNTER 2022-11-02 15:03 | Emergency (ER) | payer MEDICARE ==
[~2022-11-02] VITALS: Ht 190.5 cm; Wt 98.0 kg
[~2022-11-02 15:03] MED LIST changes: +AMOX-358 PO; +FLUT9.9S NS; +LIDO15SO3 MM; +NAPR-915 PO; +OMEP20TA56 PO; -OMEP20TA7 PO; +TIZA-186; -TIZA4TAB3; -TRAZ-28 PO; +TRZ50T PO
[2022-11-02 15:09] VITALS: BP 131/81
[2022-11-02] MEDS ORDERED: KETOROLAC 15 MG/ML VIAL IM ONE (15:45)
[2022-11-02] MEDS ORDERED: ORPHENADRINE 60 MG/2 ML (NORFLEX) AMP (ED ONLY) IM ONE (15:45)
--- NOTE | 2022-11-02 15:55 | ED Back Pain ---
General Chief Complaint: Back Problems Stated Complaint: LOWER BACK PAIN Nursing Triage Note: Patient c/o lower back pain that started last night with Hx. of back pain. Patient denies any recent falls or new injuries to his back. Patient denies any loss of bowel or bladder control. Patient denies any numbness to saddle area. Patient states the pain goes down bilat. LE. Patient states he has taken Aleve today for his pain. Patient states he has a nerve stimulator in his back. Source of Information: Patient Exam Limitations: No Limitations History of Present Illness Date Seen by Provider: Nov 02, 2022 Time Seen by Provider: 15:34 Initial Comments 42-year-old male presents to the ED with complaints of lower back pain starting last night. He has chronic lower back pain due to a work injury. Currently has a neurostimulator in place. He states that lately his neurostimulator has not been working as well, he has an appointment on November 10 to have it adjusted. He states the pain is the same as always, just worse today. He took Aleve at 11:45 AM. He reports mid anterior thigh numbness and tingling only when he first stands up. He also reports shooting pain down posterior gluteus and legs. Denies fevers, abdominal pain, nausea, vomiting, diarrhea, saddle paresthesia, bowel and bladder incontinence. Allergies and Home Medications Allergies Coded Allergies: acetaminophen (Unverified Allergy, Unknown, 10/25/15) povidone-iodine (Unverified Allergy, Unknown, 10/25/15) propoxyphene (Unverified Allergy, Unknown, 10/25/15) soap (Unverified Allergy, Unknown, 10/25/15) Patient Home Medication List Home Medication List Reviewed: Yes Amoxicillin/Potassium Clav (Augmentin 875-125 Tablet) 1 Each Tablet, 1 EACH PO B ID Prescribed by: GREGG COHEN on 08/21/172026 Cyclobenzaprine HCl (Cyclobenzaprine HCl) 5 Mg Tablet, 5 MG PO TID PRN for PAIN- MODERATE Prescribed by: WENDY DOMINGUEZ on 07/28/17 1800 Cyclobenzaprine HCl (Cyclobenzaprine HCl) 10 Mg Tablet, 10 MG PO TID Prescribed by: Amber Desai on 11/02/22 164 Fluticasone Propionate (Flonase Allergy Relief) 9.9 Ml [place].susp, 2 SPRAYS NS BID Prescribed by: RGEGG COHEN on 08/21/172026 Lidocaine HCl (Lidocaine HCl Viscous) 15 Ml Solution, 1-2 ML MM Q 1-2 HOURS Prescribed by: GREGG COHEN on 08/21/172026 Methylprednisolone (Medrol) 4 Mg Tab.ds.pk, 4 MG PO UD Prescribed by: WENDY DOMINGUEZ on 07/28/17 1800 Methylprednisolone (Methylprednisolone Dose Pack) 4 Mg Tab.ds.pk, 4 MG PO UD Prescribed by: Amber Desai on 11/02/22 1645 Naproxen (Naproxen) 500 Mg Tablet, 500 MG PO BID Prescribed by: GREGG COHEN on 08/21/172026 Omeprazole (Omeprazole) 20 Mg Tablet.dr, 20 MG PO DAILY, (Reported) Entered as Reported by: OMAR CA on 10/25/15 2219 Tizanidine HCl (Tizanidine HCl) 4 Mg Tablet, (Reported) Entered as Reported by: ANGELINA MORALES on 07/28/17 1743 Review of Systems Constitutional: see HPI Past Qnnalyx-Gnvgni-Mxgwdu Hx Patient Social History Tobacco Use?: Yes Tobacco type used: Cigarettes Smoking Status: Current Everyday Smoker Use of E-Cig and/or Vaping dev: No Substance use?: No Alcohol Use?: Yes Alcohol type: Beer Alcohol Frequency: Once in a while Pt feels they are or have been: No Immunizations Up To Date Tetanus Booster (TDap): Less than 5yrs Influenza Vaccine Up-to-Date: Yes; Up-to-Date Seasonal Allergies Seasonal Allergies: No Past Medical History Surgeries: Yes (NEUROSTIMULATOR PLACED FOR CHRONIC BACK PAIN ) Respiratory: No Cardiac: No Neurological: No Genitourinary: Yes Kidney Stones Gastrointestinal: Yes (GERD--CLINICAL DX--NO TESTS DONE) Gastroesophageal Reflux Musculoskeletal: Yes (NEUROSTIMULATOR IN PLACE) Chronic Back Pain Endocrine: No HEENT: No Cancer: No Psychosocial: Yes Sleep Difficulties, Schizophrenia Integumentary: No Blood Disorders: No Physical Exam Vital Signs Vital Signs - First Documented 11/02/22 15:09 Temp 36.8 Pulse 71 Resp 14 B/P (MAP) 131/81 (98) Pulse Ox 99 O2 Delivery Room Air Capillary Refill : Height, Weight, BMI Height: 6'2.00" Weight: 190lbs. oz. 86.603183jq; 27.00 BMI Method:Stated General Appearance: No Apparent Distress, WD/WN Neck: Normal Inspection, Supple Cardiovascular: Regular Rate, Rhythm Respiratory: Lungs Clear, Normal Breath Sounds, No Accessory Muscle Use, No Respiratory Distress Back: Muscle Spasm, Vertebral Tenderness Extremity: Normal Range of Motion Neurologic/Psychiatric: Alert, Normal Mood/Affect Skin: Normal Color, Warm/Dry Progress/Results/Core Measures Results/Orders My Orders Orders - AMBER DESAI APRN Ketorolac Injection (Toradol Injection) (11/02/22 15:45) Orphenadrine Inj (Ed Only) (Norflex Inje (11/02/22 15:45) Dexamethasone Injection (Decadron Inje (11/02/22 15:45) Medications Given in ED Vital Signs/I&O 11/02/22 15:09 Temp 36.8 Pulse 71 Resp 14 B/P (MAP) 131/81 (98) Pulse Ox 99 O2 Delivery Room Air Blood Pressure Mean: 98 Progress Progress Note : Progress Note Patient seen and evaluated, resting comfortably in recliner, no acute distress. Based on exam and symptoms, will treat with Toradol, Norflex, Decadron. 1640 patient reports improvement in pain. Will discharge with prescription for Flexeril and Medrol Dosepak. Discharge instructions and return precautions provided. Departure Impression Primary Impression: Back pain Disposition: 01 HOME, SELF-CARE Condition: Stable Departure-Patient Inst. Decision time for Depature: 16:44 Referrals: ALICIA VILLEGAS MD (PCP/Family) Primary Care Physician Patient Instructions: Low Back Pain (DC) Add. Discharge Instructions: Take Flexeril as needed for pain, may be sleepy. Take Medrol Dosepak as directed. You may continue taking Aleve as needed. Follow-up at [facility] as scheduled. Return for severe pain, numbness or tingling in your groin area, bowel or bladder incontinence, inability to walk, or any other new, concerning, or worsening symptoms. All discharge instructions reviewed with patient and/or family. Voiced understanding. Scripts Methylprednisolone (Methylprednisolone Dose Pack) 4 Mg Tab.ds.pk 4 MG PO UD for 6 Days, #21 PKG 0 Refills PER DOSE PACK INSTRUCTIONS Prov: AMBER DESAI APRN 11/02/22 Cyclobenzaprine HCl (Cyclobenzaprine HCl) 10 Mg Tablet 10 MG PO TID for 7 Days, #21 TAB 0 Refills Prov: AMBER DESAI APRN 11/02/22 AMBER DESAI APRN Nov 02, 2022 15:55
[2022-11-02] MEDS ORDERED: CYCL10TA25 PO (16:45)
[2022-11-02] MEDS ORDERED: METH4TAB10 PO (16:45)
== END 2022-11-02 16:49 | disposition home or self-care (01) ==
LOC: EDUNIT# 15:03 → ER 15:06
DX: M54.50 Low back pain, unspecified (principal); F17.210 Nicotine dependence, cigarettes, uncomplicated; Z88.6 Allergy status to analgesic agent
CPT/HCPCS: 99284

== ENCOUNTER 2023-03-01 11:35 | Emergency (ER) | payer MEDICARE ==
[~2023-03-01] VITALS: Ht 187.9 cm; Wt 97.5 kg
[~2023-03-01 11:35] MED LIST changes: +CYCL10TA25 PO; +METH4TAB10 PO
[2023-03-01] MEDS ORDERED: ORPHENADRINE 60 MG/2 ML AMP (ED ONLY) IM ONE (12:00)
[2023-03-01] MEDS ORDERED: HYDROcodone/ACETAMINOPHEN 10/325 TABLET PO ONE (12:00)
[2023-03-01] MEDS ORDERED: dexAMETHasone INJ 10 MG/ML 1 ML VIAL IM ONE (12:00)
[2023-03-01] MEDS ORDERED: KETOROLAC INJ 30 MG/ML VIAL IM ONE (12:00)
--- NOTE | 2023-03-01 12:01 | ED Back Pain ---
General Chief Complaint: Back Problems Stated Complaint: LOWER BACK PAIN Nursing Triage Note: PT AMB TO [facility] WITH COMPLAINT OF BACK PAIN. STATES HAS CHRONIC PAIN AND HAD FLARE THAT STARTED YESTERDAY Source of Information: Patient Exam Limitations: No Limitations History of Present Illness Date Seen by Provider: Mar 01, 2023 Time Seen by Provider: 11:46 Initial Comments 42-year-old male presents to the ER with reports of a flare of his chronic back pain. He states that the pain became worse 2 days ago. He currently has a neurostimulator, states that it was last adjusted in October, states it has not been helping. He is supposed to have surgery on March 16. He complains of pain in his lower spine, states that it is the same as always. Denies saddle paresthesia, bowel or bladder incontinence. He is able to walk. He reports 2 small locations of numbness on his anterior thighs only when he walks. Allergies and Home Medications Allergies Coded Allergies: Penicillins (Verified Allergy, Unknown, 03/01/23) acetaminophen (Unverified Allergy, Unknown, 10/25/15) povidone-iodine (Unverified Allergy, Unknown, 10/25/15) propoxyphene (Unverified Allergy, Unknown, 10/25/15) soap (Unverified Allergy, Unknown, 10/25/15) tramadol (Verified Allergy, Unknown, 03/01/23) Patient Home Medication List Home Medication List Reviewed: Yes Amoxicillin/Potassium Clav (Augmentin 875-125 Tablet) 1 Each Tablet, 1 EACH PO BID Prescribed by: GREGG COHEN on 08/21/172026 Cyclobenzaprine HCl (Cyclobenzaprine HCl) 5 Mg Tablet, 5 MG PO TID PRN for PAIN- MODERATE Prescribed by: WENDY DOMINGUEZ on 07/28/17 1800 Cyclobenzaprine HCl (Cyclobenzaprine HCl) 10 Mg Tablet, 10 MG PO TID Prescribed by: Amber Joseph on 11/02/22 1645 Fluticasone Propionate (Flonase Allergy Relief) 9.9 Ml [place].susp, 2 SPRAYS NS BID Prescribed by: GREGG COHEN on 08/21/172026 Hydrocodone/Acetaminophen (Hydrocodone-Acetamin 5-325 mg) 5 Mg-325 Mg Tablet, 1 TAB PO Q4H PRN for PAIN-MODERATE (5-7) Prescribed by: Amber Joseph on 03/01/23 1244 Lidocaine HCl (Lidocaine HCl Viscous) 15 Ml Solution, 1-2 ML MM Q 1-2 HOURS Prescribed by: GREGG COHEN on 08/21/172026 Methylprednisolone (Medrol) 4 Mg Tab.ds.pk, 4 MG PO UD Prescribed by: WENDY DOMINGUEZ on 07/28/17 1800 Methylprednisolone (Methylprednisolone Dose Pack) 4 Mg Tab.ds.pk, 4 MG PO UD Prescribed by: Amber Joseph on 11/02/22 1645 Naproxen (Naproxen) 500 Mg Tablet, 500 MG PO BID Prescribed by: GREGG COHEN on 08/21/172026 Omeprazole (Omeprazole) 20 Mg Tablet.dr, 20 MG PO DAILY, (Reported) Entered as Reported by: OMAR CA on 10/25/15 2219 Tizanidine HCl (Tizanidine HCl) 4 Mg Tablet, (Reported) Entered as Reported by: ANGELINA MORALES on 07/28/17 1743 Review of Systems Constitutional: see HPI Past Tkotbvq-Dyodxf-Lfaaav Hx Patient Social History Tobacco Use?: Yes Tobacco type used: Cigarettes Smoking Status: Current Everyday Smoker Use of E-Cig and/or Vaping dev: No Substance use?: No Alcohol Use?: No Pt feels they are or have been: No Immunizations Up To Date Tetanus Booster (TDap): Less than 5yrs Seasonal Allergies Seasonal Allergies: No Past Medical History Surgeries: Yes (NEUROSTIMULATOR PLACED FOR CHRONIC BACK PAIN ) Respiratory: No Cardiac: No Neurological: No Genitourinary: Yes Kidney Stones Gastrointestinal: Yes (GERD--CLINICAL DX--NO TESTS DONE) Gastroesophageal Reflux Musculoskeletal: Yes (NEUROSTIMULATOR IN PLACE) Chronic Back Pain Endocrine: No HEENT: No Cancer: No Psychosocial: Yes Sleep Difficulties, Schizophrenia Integumentary: No Blood Disorders: No Physical Exam Vital Signs Vital Signs - First Documented 03/01/23 11:41 Pulse 62 Resp 18 B/P (MAP) 129/87 (101) Pulse Ox 100 O2 Delivery Room Air Capillary Refill : Less Than 3 Seconds Height, Weight, BMI Height: 6'2.00" Weight: 190lbs. oz. 86.477419li; 27.00 BMI Method:Stated General Appearance: No Apparent Distress, WD/WN Neck: Normal Inspection, Supple Cardiovascular: Regular Rate, Rhythm Respiratory: Lungs Clear, Normal Breath Sounds, No Accessory Muscle Use, No Respiratory Distress Back: Vertebral Tenderness, Other (Lower bilateral back muscle tenderness) Extremity: Normal Inspection, Normal Range of Motion Neurologic/Psychiatric: Alert, Normal Mood/Affect Skin: Normal Color, Warm/Dry Progress/Results/Core Measures Results/Orders My Orders Orders - AMBER SHOEMAKER APRN Ketorolac Injection (Ketorolac Injection (03/01/23 12:00) Dexamethasone Injection (Dexamethasone (03/01/23 12:00) Orphenadrine Inj (Ed Only) (Orphenadrine (03/01/23 12:00) Lidocaine 4% Patch (Salonpas 4% Patch) (03/02/23 09:00) Hydrocodone/Apap 10/325 Tablet (Hydrocod (03/01/23 12:00) Lidocaine 4% Patch (Salonpas 4% Patch) (03/01/23 12:20) Medications Given in ED Current Medications Medications Dose Ordered Sig/Sean Route Start Time Stop Time Status Last Admin Dose Admin Acetaminophen/ Hydrocodone Bitart 1 ea ONCE ONCE PO 03/01/23 12:00 03/01/23 12:01 DC 03/01/23 12:16 1 EA Dexamethasone Sodium Phosphate 10 mg ONCE ONCE IM 03/01/23 12:00 03/01/23 12:01 DC 03/01/23 12:16 10 MG Ketorolac Tromethamine 30 mg ONCE ONCE IM 03/01/23 12:00 03/01/23 12:01 DC 03/01/23 12:16 30 MG Orphenadrine Citrate 60 mg ONCE ONCE IM 03/01/23 12:00 03/01/23 12:01 DC 03/01/23 12:16 60 MG Vital Signs/I&O 03/01/23 11:41 Pulse 62 Resp 18 B/P (MAP) 129/87 (101) Pulse Ox 100 O2 Delivery Room Air Blood Pressure Mean: 101 Progress Progress Note : Progress Note Patient seen and evaluated, resting in recliner, no acute distress. Based on exam and symptoms, will treat with Decadron, Toradol, Norflex, lidocaine, and [place]. 1233 patient reevaluated. Patient stable for discharge. Will discharge with short prescription for [place], I did check [employer], patient has not had a prescription of [place] or any other narcotic filled since the end of December. Discharge instructions and return precautions provided. Departure Impression Primary Impression: Chronic back pain Disposition: HOME, SELF-CARE Condition: Stable Departure-Patient Inst. Decision time for Depature: 12:33 Referrals: ALICIA VILLEGAS MD (PCP/Family) Primary Care Physician Patient Instructions: MANAGING YOUR CHRONIC PAIN Add. Discharge Instructions: Follow-up with your primary care provider. Return for numbness or tingling in your groin or inner thighs, bowel or bladder incontinence, inability to walk, or any other new, concerning, or worsening symptoms. All discharge instructions reviewed with patient and/or family. Voiced understanding. Scripts Hydrocodone/Acetaminophen (Hydrocodone-Acetamin 5-325 mg) 5 Mg-325 Mg Tablet 1 TAB PO Q4H PRN for PAIN-MODERATE (5-7), #6 TAB 0 Refills Prov: AMBER SHOEMAKER APRN 03/01/23 AMBER SHOEMAKER APRN Mar 01, 2023 12:01
[2023-03-01] MEDS ORDERED: LIDOCAINE 4% PATCH ONE (12:20)
[2023-03-01] MEDS ORDERED: ACHD5005 PO (12:43)
[2023-03-01 12:45] VITALS: BP 129/87
[2023-03-02] MEDS ORDERED: LIDOCAINE 4% PATCH TOP SCH (09:00)
== END 2023-03-01 12:45 | disposition home or self-care (01) ==
LOC: EDUNIT# 11:35 → ER 11:37
DX: M54.50 Low back pain, unspecified (principal); G89.29 Other chronic pain; F17.210 Nicotine dependence, cigarettes, uncomplicated; Z96.82 Presence of neurostimulator
CPT/HCPCS: 99284